=== PATIENT | male | born 1950 | race Caucasian/White ===

== ENCOUNTER → 2016-12-15 | Outpatient (CLI) | payer MEDICARE | LOC: HEART CORB 10:41 | DX: I12.9 Hypertensive chronic kidney disease with stage 1 through stage 4 chronic kidney disease, or unspecified chronic kidney disease (principal); N18.3 Chronic kidney disease, stage 3 (moderate); C88.0 Waldenstrom macroglobulinemia ==

== ENCOUNTER → 2017-01-11 | Outpatient (CLI) | payer MEDICARE ==
[2017-01-11 10:45] LABS: BUN/CREATININE RATIO 13 (0-10)
== END ==
LOC: LAB 09:48
PROVIDERS: Internal Medicine Nephrology
DX: N18.3 Chronic kidney disease, stage 3 (moderate) (principal)
CPT/HCPCS: 36415; 80048; 81001; 82570; 84156

== ENCOUNTER 2021-11-13 08:55 | Inpatient (IN) | payer MEDICARE ==
[~2021-11-13] VITALS: Ht 180.3 cm; Wt 94.3 kg
[~2021-11-13 08:55] MED LIST: AMLODIPINE BESY10 MG PO; COLCHICINE 0.60.6 MG PO; COREG25 MG PO; DOXEPIN HCL50 MG PO; MELATONIN5 M5 PO; SERTRALINE HCL50 MG PO; VALIUM5 MG PO; VITAMIN C500 MG PO; Voltaren Gel 1 % TOP; ZYLOPRIM100 MG PO
[2021-11-13 09:48] LABS: HEMOGLOBIN 16.3 gm/dl (14.0-17.5); RED BLOOD COUNT 5.6 M/UL (4.20-5.50); WHITE BLOOD COUNT 10.9 K/UL (4.5-11.0)
[2021-11-13] MEDS ORDERED: QUETIAPINE FUMA25 MG PO (14:50)
[2021-11-13] MEDS ORDERED: ONDANSETRON HCL4 MG PO (15:33)
[2021-11-13] MEDS ORDERED: MELATONIN5 M2 PO (15:34)
[2021-11-13] MEDS ORDERED: SERTRALINE HCL100 MG PO (15:34)
[2021-11-14 06:03] LABS: HEMOGLOBIN 14.6 gm/dl (14.0-17.5); RED BLOOD COUNT 5.05 M/UL (4.20-5.50); WHITE BLOOD COUNT 9.8 K/UL (4.5-11.0)
[2021-11-15 06:04] LABS: HEMOGLOBIN 14.6 gm/dl (14.0-17.5); RED BLOOD COUNT 5.02 M/UL (4.20-5.50); WHITE BLOOD COUNT 8.9 K/UL (4.5-11.0)
[2021-11-16 07:06] LABS: HEMOGLOBIN 14.7 gm/dl (14.0-17.5); RED BLOOD COUNT 5.14 M/UL (4.20-5.50); WHITE BLOOD COUNT 9.4 K/UL (4.5-11.0)
[2021-11-17 04:15] LABS: HEMOGLOBIN 13.7 gm/dl (14.0-17.5)
[2021-11-17 04:17] LABS: RED BLOOD COUNT 4.58 M/UL (4.20-5.50)
[2021-11-18 06:37] LABS: HEMOGLOBIN 14.1 gm/dl (14.0-17.5); RED BLOOD COUNT 4.93 M/UL (4.20-5.50)
[2021-11-18 06:40] LABS: WHITE BLOOD COUNT 11.3 K/UL (4.5-11.0)
--- NOTE | 2021-11-18 14:04 | NUR ---
11/17/20 @1000 PT IS MOVING THE ROOM AROUND AND BLOCKING THE DOOR AND CLEANING THE FLOORS AND PANCHAL. PT CAME OUT IN THE [facility] AND STARTED TO TRY TO CLEAN OTHER PTS ROOMS AND WHEN ASKED TO GO BACK STATED THAT "WE ARE HOLDING HIM AGAINST HIS WILL AND THAT HES IN LONGTERM." I WALKED PT BACK TO HIS ROOM AND HE STATED "THEY GET TO WALK AROUND BUT IM IN LONGTERM." THEY BEING THE PEOPLE IN THE PARKING LOT. I EXPLAINED THAT THEY WHERE NOT PTS. HE STARTED MOVING STUFF AROUND AGAIN AND TRYING TO BLOCK THE DOOR. PT HAD A PRN ORDER OF GEODON 10MG IM. I GAVE IT AT 1044, HE STILL KEPTING MOVING EVERYTHING AROUND AND CLEANING AND STATING HE IS IN LONGTERM. HE STAYED IN HIS ROOM UNTIL 1200 AND THEN STARTED AGAIN, CAME OUT UPSET AND DIDNT WANT TO BE SENT TO A "MENTAL HOUSE" EXPLAINED TO PT THAT WE ARE JUST TRYING TO HELP HIM AND HE STATED WE JUST WANTED HIS MONEY AND BELONGINGS AND I TRIED TO REASURE HIM THAT WE WERE NOT AFTER HIS STUFF THAT WE JUST WANTED TO HELP HIM. DOCTOR TOLD ME TO GIVE ANOTHER ONE TIME DOES OF GEODON 10MG. I GAVE IT TO THE PT AND HE THEN STARTED TO STAY IN HIS ROOM AND CLEAN BUT HE DID NOT COME OUT INTO THE HALLS DURING THE REST OF MY SHIFT. SITTER IN PLACE.
--- NOTE | 2021-11-18 16:48 | NUR ---
PT DISCHARGE INTO THE CARE OF LAW ENFORCEMENT, PT UNDERSTOOD AND WAS UPSET AT FIRST BUT WE EXPLAINED THAT HE WAS GOING TO TALK TO SOMEONE FACE TO FACE TO GET HIM SOME HELP, AND HE WAS VERY AGREEABLE TO THAT.
== END 2021-11-18 16:35 | disposition short-term general hospital (02) | DRG 682 ==
LOC: ER1 08:55 → MED SURG 4 11:15 → CDU 11:15 → MED SURG 4 14:09
PROVIDERS: Internal Medicine; Internal Medicine Nephrology; Nurse Practitioner; Physician Assistant Medical; ADMIT Internal Medicine
DX: N17.9 Acute kidney failure, unspecified (principal); G93.41 Metabolic encephalopathy; I12.9 Hypertensive chronic kidney disease with stage 1 through stage 4 chronic kidney disease, or unspecified chronic kidney disease; N18.30 Chronic kidney disease, stage 3 unspecified; F31.9 Bipolar disorder, unspecified; M10.9 Gout, unspecified; C88.0 Waldenstrom macroglobulinemia; Z20.822 Contact with and (suspected) exposure to COVID-19; Z83.3 Family history of diabetes mellitus
CPT/HCPCS: 0240U; 36415; 36600; 70450; 70551; 71045; 80048; 80053; 80307; 81001; 82140; 82550; 82553; 82570; 82803; 83605; 83735; 83880; 84100; 84156; 84300; 84439; 84443; 84484; 85025; 85027; 87040; 89050; 93005; 96372; 96374; 96375; 99285; G0378; J1650; J3486; P9047